=== PATIENT | female | born 1965 | race Caucasian/White ===

== ENCOUNTER 2018-12-21 18:51 | Outpatient (REF) | payer OTHER, SELFPAY | END 2018-12-21 19:11 | LOC: LBN 18:51 | PROVIDERS: PCP Family Medicine; Visit Provider Nurse Practitioner Family | DX: R35.0 Frequency of micturition (principal) | CPT/HCPCS: 87077; 87086; 87186 ==

== ENCOUNTER 2019-01-03 00:36 | Outpatient (CLI) | payer OTHER, SELFPAY ==
--- NOTE | 2019-01-03 07:30 | DI.MAMMO_ITS ---
SYMPTOMS/DIAGNOSIS: SCREENING, Z12.31 MAMMOGRAM: Mammograms were interpreted according to the usual protocol including computer analysis with CAD system, tomosynthesis and C view imaging. Comparison with prior examinations. Breast density C. No suspicious masses or microcalcifications are seen. There is no definite evidence of malignancy. IMPRESSION: Negative mammogram. Routine screening is recommended. Category I. MQSA ASSESSMENT OF FINDINGS: Negative. Category 1. Patient will receive a letter notifying them of these results. Bi-RADS category C. The breasts are heterogeneously dense, which may obscure small masses.
== END 2019-01-03 00:56 ==
PROVIDERS: PCP Family Medicine; Visit Provider Nurse Practitioner Family
DX: Z12.31 Encounter for screening mammogram for malignant neoplasm of breast (principal)
CPT/HCPCS: 77063; 77067

== ENCOUNTER 2019-12-27 15:57 | Outpatient (REF) | payer OTHER, SELFPAY ==
--- NOTE | 2019-12-27 15:30 | PAPFT_PTH ---
PATIENT: Rochelle Guido LOC: [facility] U#:[id number] AGE/SX: 54/F ROOM: RE12/27/[address]: LETHA Ramirez : 1965 BED: DIS: 12/27/2019 SPEC #: [id number] RECD: 12/27/19 16:53 STATUS: NIKOLAS REEfrem #: [id number] CECILIA: 12/27/19 15:[address]: Elissa Harrington DEPT: [facility] Cytology RECD BY: Em Rodriguez ENTERED: 12/27/19 16:54 SP TYPE: PAPFT OTHR DR: Francine Ennis V Tissues: 1 - CX/ENDOCX FOR PAP SMEARS Procedures: PAP THIN PREP/UVM Screening HPV DNA PROBE Comments: [id number]
== END 2019-12-27 16:17 ==
LOC: LBN 15:57
PROVIDERS: PCP Family Medicine; Visit Provider Nurse Practitioner Family
DX: Z12.4 Encounter for screening for malignant neoplasm of cervix (principal); Z11.51 Encounter for screening for human papillomavirus (HPV)
CPT/HCPCS: 88142; 87624

== ENCOUNTER 2020-06-10 08:29 | Outpatient (CLI) | payer OTHER, SELFPAY ==
[2020-06-11 14:53] LABS: COVID-19 RT-PCR Result NEGATIVE (Negative)
== END 2020-06-10 08:49 ==
PROVIDERS: PCP Family Medicine; Visit Provider Podiatrist
DX: Z11.59 Encounter for screening for other viral diseases (principal)
CPT/HCPCS: U0003

== ENCOUNTER 2020-06-13 06:19 | Day surgery (SDC) | payer OTHER, SELFPAY ==
[2020-06-13 06:24] VITALS: BP 143/95; PULSE 74; RESP 16; TEMP 36.5; O2SAT 98
[2020-06-13] MEDS: Lactated Ringers 1,000 ML 80 ML IV (06:57)
--- NOTE | 2020-06-13 07:12 | HPE_ITS ---
Date of service: 06/13/20 Time of Service: 07:13 History of Present Illness History of Present Illness Chief Complaint: Right bunion deformity Narrative: 55-year-old female with slowly increasing pain associated with her right bunion deformity which is now interfering with comfortable shoe gear usage and work. Non-operative treatment to fail to provide significant relief of symptoms and she is looking for surgical repair. [facility] Medical History Migraine (Acute) Surgical History section a son at age 7 weeks with mitochondrial depletion A daughter at 6mo of age with mitochondrial depletion. Hx of colonoscopy (Chronic) [place] teeth extracted (Acute) Family History Father Heart disease Mother Hypertension Social History Smoking/Tobacco Use Status: Never Alcohol Intake: current Alcohol Intake frequency: a few times a week Alcohol type: beer Drug use: Never Substance use type: does not use Do you feel safe at home: Yes Do you feel safe in your relationship?: Yes History History 2 Para 2 Hx # Term Pregnancies Multiple births Hx # Pregnancies Ectopic pregnancies AB induced Hx Number of Living Children AB spontaneous Meds Home Medications and Allergies Home Medications Medication Instructions Recorded Confirmed Type Unknown [No Known Home Meds] 12/27/19 06/11/20 History Allergies Allergy/AdvReac Type Severity Reaction Status Date / Time kiwi Allergy Swelling/Ed Verified 06/13/20 06:24 sera No Known Drug Allergies Allergy Verified 06/13/20 06:24 Exam Narrative Exam Narrative: Rochelle is a 55-year-old female who presents in no acute distress. Head is normocephalic Eyes PERRLA Hearing is adequate Uvular is midline, airway looks assessable Heart has regular rate and rhythm without gallops rubs murmurs Lung messina were clear Abdomen was soft and nontender. Peripheral pulses are manually palpable at the ankles 2/4 CFT under 3 seconds without edema. Skin is grossly intact. Muscle groups 5 out of 5 bilaterally Skeletal exam is generally benign with the exception of the right first MPJ where a mild to moderate bunion deformity is observed. Tenderness is noted particularly along the medial and medial plantar aspect of the joint. No crepitance was noted. The sesamoid complex was currently asymptomatic although the medial sesamoid appears to be running over the dante. Neurologically she is grossly intact toes were downgoing there were no focal deficits Impressions: Symptomatic right bunion deformity Plan: Rochelle is being brought to the OR for surgical repair of the right bunion deformity. She understands risk and complications of surgery pertaining to pain, scarring, stiffness of the joint, over or under correction of deformity with persistent discomfort potentially requiring revisional procedure. All questions have been answered in detail. Informed consent has been obtained. Results Last Vital Signs Temp 36.5 C 06/13/20 06:24 Pulse 74 06/13/20 06:24 Resp 16 06/13/20 06:24 BP 143/95 H 06/13/20 06:24 Pulse Ox 98 06/13/20 06:24 COVID-19 Screening Have you,or household,traveled outside [place] in last 14 days?: No Had IN PERSON contact w/suspected or confirmed C-19 person: No
[2020-06-13] MEDS: ceFAZolin 1 GM/50 ML BAG IVPB (07:33)
[2020-06-13] MEDS: Bupivacaine 0.5% Pres-Free 30 ML VIAL (08:05)
[2020-06-13] MEDS: Lidocaine 1% Multi-Dose 50 ML VIAL (08:10)
[2020-06-13] MEDS: Dexamethasone 4 MG/ML VIAL (08:20)
--- NOTE | 2020-06-13 08:38 | W.PM.DSUDISC ---
Discharge Plan Disposition Patient Disposition: HOME Condition: Good Discharge Details Attending Provider: Celestine Almodovar Primary Care Provider: Francine Ennis V Home Meds and New Rx's Prescriptions: New ibuprofen 600 mg tablet 600 mg PO Q6H PRN (Reason: pain) Qty: 40 RF: 1 hydrocodone-acetaminophen [[place]] 5-325 mg tablet 1 tab PO Q6H PRN (Reason: pain) Qty: 7 RF: 0 Discharge Instructions Activity:: Elevate Remove Dressings/Wound Care:: Do Not Remove Shower/Bathe:: Cover Diet:: Normal Diet DS: Diagnosis Discharge Diagnosis (1) Hallux valgus (acquired), right foot: Status: Acute
--- NOTE | 2020-06-13 08:44 | ROE_ITS ---
Date of service: 06/13/20 Time of Service: 08:44 Operative Note Operative Note DATE OF PROCEDURE: 06/13/20 PRE-OP DIAGNOSIS: Hallux Valgus, right foot POST-OP DIAGNOSIS: same PROCEDURE: Modified Sandoval bunionectomy right foot ANESTHESIA: GETA ESTIMATED BLOOD LOSS: 1 PATHOLOGY: none sent TOURNIQUET TIME: 43 COMPLICATIONS: None Patient was transported to: same day Patient's condition: stable Implants: none Indications: 55-year-old female with pain along the medial and medial plantar aspect of the right first MPJ slowly worsening interfering with shoe gear and ambulation and daily activities. Procedure Description: Rochelle is brought to the operative suite placed in the supine position with the right foot was prepped and draped in the usual sterile podiatric fashion. Timeout was performed per protocol. Anesthesia was obtained through general non-airway anesthesia with local block of the right first ray consisting of 10 cc 50: 50 mixture 1% lidocaine plain, 0.5% Marcaine plain. Attention was directed to the right foot which was exsanguinated well-padded ankle tourniquet inflated 250 mmHg. A 5 cm dorsal medial incision was made parallel to the EHL tendon over the first MPJ. The incision was deepened in controlled depth fashion hemostasis being acquired with electrocautery. A lateral dissection of the joint was performed consisting of a lateral capsulotomy and an adductor tendon release. Attention was now directed to the medial aspect of the joint where an inverted L capsulotomy was performed. The medial and medial dorsal aspect of the joint showed moderate degenerative change with hypertrophy of bone. Consistent with osteoarthritic changes. With power instrumentation the medial and medial dorsal hyperostosis were resected. All rough and bony edges were rasped smooth. Copious irrigation was performed. She had good range of motion and good correction of her deformity. The medial joint capsule was repaired with a medial capsulorrhaphy and closure with 3-0 Vicryl simple interrupted suture. Subcutaneous layer was repaired with simple in terrupted suture 3-0 Vicryl subcuticular layer was repaired with simple interrupted suture of 4-0 Vicryl and the skin was brought together with continuous running 4-0 Monocryl suture. 4 mg dexamethasone phosphate was infused into the wound. The skin was then covered with Mastisol half-inch Steri-Strips Xeroform fluff Kerlix rolls Hema wrap. She is to remain in the postoperative shoe which was dispensed for all weightbearing activities she is to maintain the dressings clean and dry. The tourniquet was released at 43 minutes with vascularity returning immediately to all toes sharp and sponge counts were correct. She will be followed by myself in the office next week.
[2020-06-13 09:37] VITALS: BP 138/91; PULSE 59; RESP 16; TEMP 36.8; O2SAT 98
== END 2020-06-13 10:20 | disposition home or self-care (01) ==
PROVIDERS: PCP Family Medicine; Visit Provider Podiatrist
PROC: (CPT 28292; principal; 2020-06-13 07:30)
DX: M20.11 Hallux valgus (acquired), right foot (principal)
CPT/HCPCS: 28292; 99218; J0690; J1100

== ENCOUNTER 2021-04-02 08:54 | Outpatient (CLI) | payer OTHER, SELFPAY ==
[2021-04-02 09:16] LABS: Calculated LDL 143 mg/dL (<100); Cholesterol 229 mg/dL (<200); Glucose 98 mg/dL (74-106); HDL Cholesterol 65 mg/dL (40-60); Triglyceride 108 mg/dL (<150)
== END 2021-04-02 08:55 | disposition home or self-care (01) ==
LOC: LBO 08:57
PROVIDERS: PCP Family Medicine; Visit Provider Nurse Practitioner Family
DX: Z13.1 Encounter for screening for diabetes mellitus (principal); Z13.220 Encounter for screening for lipoid disorders
CPT/HCPCS: 36415; 80061; 82947

== ENCOUNTER 2021-04-02 14:52 | Outpatient (CLI) | payer OTHER, SELFPAY ==
--- NOTE | 2021-04-02 11:52 | DI.MAMMO_ITS ---
Exam(s) MAMMO SCREENING EXAM: MAMMO SCREENING CLINICAL HISTORY: screening TECHNIQUE: Bilateral full field digital CC and MLO mammographic images were obtained with 3D tomosyn thesis and utilizing computer aided detection (CAD). COMPARISON: Available for comparison. FINDINGS: Masses/Architectural Distortion: None seen. Microcalcifications: No suspicious pleomorphic-type are seen. Skin Thickening/Nipple Retraction: None. IMPRESSION: 1. No significant interval change with no specific features of malignancy noted. 2. Unless there is more urgent need, screening mammography is recommended, as per [employer] guidelines. BI-RADS Category 1 - Negative Breast Density - Category C - Heterogeneously dense Breast density category C or D implies that the patient has dense breast tissue. Dense breast tissue is very common and is not abnormal but dense breast tissue can make it harder to find cancer on a ma mmogram. Also, dense breast tissue may increase their breast cancer risk. This information about the result of the mammogram report was provided to the patient to raise their awareness. Use this report when you speak with the patient about their risks for breast cancer, which includes their family hist ory. At that time, you may recommend for more screening tests (Ultrasound or MRI) as they might be us eful based on their risk. A negative radiographic report should not delay biopsy if a dominant or clinically suspicious mass is present. Up to ten percent of cancers are not identified on mammography. A negative report may reinforce clinical impression. Adenosis and dense breasts may obscure an underlying neoplasm. False positive reports average 6 to 10%. Patient will receive a letter notifying them of these results.
== END 2021-04-02 15:12 ==
PROVIDERS: PCP Family Medicine; Visit Provider Nurse Practitioner Family
DX: Z12.31 Encounter for screening mammogram for malignant neoplasm of breast (principal)
CPT/HCPCS: 77063; 77067

== ENCOUNTER 2021-07-20 03:10 | Outpatient (REF) | payer OTHER, SELFPAY ==
[2021-07-20 19:54] LABS: COVID-19 RT-PCR UVMMC Result Negative (Negative)
== END 2021-07-20 03:11 | disposition home or self-care (01) ==
LOC: LBO 03:10
PROVIDERS: PCP Family Medicine; Visit Provider Nurse Practitioner Family
DX: Z20.822 Contact with and (suspected) exposure to COVID-19 (principal)
CPT/HCPCS: U0003

== ENCOUNTER 2021-09-07 09:23 | Outpatient (CLI) | payer OTHER, SELFPAY ==
[2021-09-08 10:05] LABS: Source Nasal/Nares
[2021-09-08 13:22] LABS: COVID-19 PCR Negative (Negative)
== END 2021-09-07 09:24 | disposition home or self-care (01) ==
LOC: LBO 09:25
PROVIDERS: PCP Family Medicine; Visit Provider Family Medicine
DX: Z20.822 Contact with and (suspected) exposure to COVID-19 (principal)
CPT/HCPCS: 87635

== ENCOUNTER 2021-11-13 13:54 | Outpatient (REF) | payer OTHER, SELFPAY ==
[2021-11-13 14:07] LABS: Bilirubin Negative (Negative); Blood Trace-lysed (Negative); Clarity Clear (Clear); Glucose Negative (Negative); Ketones Negative (Negative); Leukocyte Esterase Negative (Negative); Nitrite Negative (Negative); Specific Gravity 1.015 (1.005-1.025); Urobilinogen 0.2 EU/dL (Up TO 0.2); pH 5.5 (5-8)
[2021-11-13 14:19] LABS: WBC 0-2 HPF (0-5)
[2021-11-13 14:20] LABS: Bacteria Rare HPF (Negative); C & S Indicated? C&S Done As Ordered; Casts Negative LPF (Negative); Crystals Negative HPF (Negative); Epithelial Cells Few HPF (Negative); Mucus Negative (Negative)
== END 2021-11-13 13:55 | disposition home or self-care (01) ==
LOC: LBN 13:54
PROVIDERS: PCP Family Medicine; Visit Provider Urology
DX: R30.0 Dysuria (principal)
CPT/HCPCS: 81003; 81015; 87086

== ENCOUNTER 2023-08-10 15:55 | Outpatient (REF) | payer OTHER, SELFPAY ==
--- NOTE | 2023-08-10 15:00 | PAPFT_PTH ---
PATIENT: Rochelle Guido LOC: [facility] U#:[id number] AGE/SX: 58/F ROOM: RE08/10/[address]: Toña Miller NP : 1965 BED: DIS: 08/10/2023 SPEC #: [id number] RECD: 08/10/23 18:14 STATUS: NIKOLAS REQ #: [id number] CECILIA: 08/10/23 15:[address]: Toña Miller NP DEPT: [facility] Cytology RECD BY: Em Rodriguez ENTERED: 08/10/23 18:14 SP TYPE: PAPFT OTHR DR: Francine Ennis V Tissues: 1 - CX/ENDOCX FOR PAP SMEARS Procedures: PAP THIN PREP/UVM Screening HPV DNA PROBE Comments: [id number]
== END 2023-08-10 15:56 | disposition home or self-care (01) ==
LOC: LBN 15:55
PROVIDERS: PCP Family Medicine; Visit Provider Nurse Practitioner Women's Health
DX: Z12.4 Encounter for screening for malignant neoplasm of cervix (principal); Z11.51 Encounter for screening for human papillomavirus (HPV)
CPT/HCPCS: 88142; 87624

== ENCOUNTER → 2023-08-29 02:27 | Outpatient (CLI) | payer OTHER, SELFPAY ==
--- NOTE | 2023-08-29 15:00 | DI.MAMMO_ITS ---
Exam(s) MAMMO SCREENING EXAM: MAMMO SCREENING CLINICAL HISTORY: screening TECHNIQUE: Mammograms were interpreted according to the usual protocol including computer analysis w [employer] CAD system, tomosynthesis and C-view imaging. COMPARISON: 2012 through 2020 FINDINGS: The breasts are composed of scattered fibroglandular densities, Breast Density category B. No suspicious masses or suspicious microcalcifications are seen. No skin thickening or abnormal axillary lymph nodes are seen. There has been no significant change from prior exams. IMPRESSION: BI-RADS Category 1, Negative mammogram Yearly screening mammography is recommended. Breast Density - Category B, scattered fibroglandular densities. A negative radiographic report should not delay biopsy if a dominant or clinically suspicious mass is present. Up to ten percent of cancers are not identified on mammography. A negative report may reinforce clinical impression. Adenosis and dense breasts may obscure an underlying neoplasm. False positive reports average 6 to 10%. Patient will receive a letter notifying them of these results.
== END ==
PROVIDERS: PCP Physician Assistant Medical; Visit Provider Nurse Practitioner Women's Health
DX: Z12.39 Encounter for other screening for malignant neoplasm of breast (principal)
CPT/HCPCS: 77063; 77067

== ENCOUNTER 2023-11-24 13:33 | Outpatient (CLI) | payer OTHER, SELFPAY ==
--- NOTE | 2023-11-24 10:45 | DI.RAD_ITS ---
Exam(s) XR KNEE LT 4V AP,LAT,GLEN,PAT EXAM: XR KNEE LT 4V AP,LAT,GLEN,PAT CLINICAL HISTORY: LEFT KNEE PAIN. TECHNIQUE: 2D digital imaging was performed of the left knee. Four images were obtained. Merchant, AP, lateral and PA tunnel views were obtained. COMPARISON: No exams were available for comparison FINDINGS: BONES: No acute fracture is present. No bony destructive lesion is seen. There is an enthesophyte at the anterior patella. JOINTS: The knee is normally aligned. No joint effusion is seen. No loose body. SOFT TISSUE: Normal. IMPRESSION: No acute abnormality. DATA REPOSITORY: RADIATION DOSE DELIVERED:
== END 2023-11-24 13:34 | disposition home or self-care (01) ==
LOC: DIORS 13:34
PROVIDERS: PCP Physician Assistant Medical; Visit Provider Physician Assistant
DX: M25.562 Pain in left knee (principal)
CPT/HCPCS: 73564

== ENCOUNTER 2024-08-17 06:22 | Day surgery (SDC) | payer OTHER, SELFPAY ==
--- NOTE | 2024-08-16 19:05 | HPE_ITS ---
Assessment and Plan Assessment and plan (1) Encounter for screening colonoscopy: Status: Acute Assessment and plan: We reviewed the plan for a screening colonoscopy today as well as the risks and benefits of the procedure. I think Annika has a good understanding of what to expect. She is able to provide informed consent and we can proceed with colonoscopy as planned. History of Present Illness History of Present Illness Chief Complaint: screenig colonoscopy Narrative: Annika is a 59 year old who appears far younger than her stated age. She has been in her usual state of health. She underwent a colonoscopy as part of routine health maintenance 10 years ago which demonstrated some diverticulosis, but no evidence of any polyps. She denies any significant melena or hematochezia. She denies any known family history of colon or rectal cancers. PFSH All Active Problems Encounter for screening colonoscopy (Acute) Internal derangement of left knee (Acute) Depo-medrol injection: 05/25/24 Left knee DJD (Chronic) Mild Iliotibial band syndrome of left side (Acute) Pes anserinus bursitis of left knee (Acute) Hamstring tendinitis of left thigh (Acute) Hallux valgus (acquired), right foot (Acute) Migraine (Acute) Surgical History S/P foot surgery, right Hx of colonoscopy [place] teeth extracted section a son at age 7 weeks with mitochondrial depletion A daughter at 6mo of age with mitochondrial depletion. Family History Father Heart disease Mother Hypertension Social History Smoking/Tobacco Use Status: Never Smoking risk assessment performed?: Yes Alcohol Intake: current Alcohol Intake frequency: holidays/special occasions only Alcohol type: beer Drug use: Never Substance use type: does not use Housing: house Education Level: college current occupation: RN Sexually active: Yes Do you think of yourself as: straight/heterosexual Current gender identity: female What is your relationship status?: Panel score (0-1 are the most socially isolated patients): 1 What type of physical activity do you participate in: regular exercise Frequency: 3-4 times per week Seatbelt use: always Helmet use: Yes Drive intox or ride w/intox commercial collections driver: No Do you feel safe at home: Yes Do you feel safe in your relationship?: Yes Female Reproductive History Menstrual Menopause type: natural (2018) History History 2 Para 2 Hx # Term Pregnancies Multiple births Hx # Pregnancies Ectopic pregnancies AB induced Hx Number of Living Children 0 AB spontaneous Meds Allergies and Home Medications Allergies Allergy/AdvReac Type Severity Reaction Status Date / Time kiwi Allergy Anaphylaxis Unverified 08/17/24 06:32 Home Medications ?Medication ?Instructions ?Recorded ?Confirmed ?Type meloxicam 15 mg tablet 15 mg PO DAILY PRN 05/25/24 08/17/24 History Exam Const General: cooperative, healthy appearing and not in acute distress Neck Neck: normal visual inspection, no lymphadenopathy and supple Resp Effort & Inspection: normal respiratory effort Auscultation: clear to auscultation bilaterally Cardio Jugular venous pressure: no JVD Rate: regular rate Rhythm: regular rhythm Heart Sounds: S1 normal and S2 normal GI Inspection: normal to inspection Palpation: soft, no guarding, no hernias and nontender Percussion: normal to percussion Auscultation: normal bowel sounds Neuro General: patient alert, patient awake and patient oriented x3 Psych Appearance: grossly normal
--- NOTE | 2024-08-16 19:14 | PDOC.DSDIS_ITS ---
Date of service: 08/17/24 Time of Service: 08:06 Discharge Plan Disposition Patient Disposition: Home Condition: Good Discharge Details Reason For Visit: screening colonoscopy Attending Provider: Vickey Edwards Primary Care Provider: Spencer Hudson Home Meds and New Rx's Prescriptions: Continued meloxicam 15 mg tablet 15 mg PO DAILY PRN Rx Instructions: Take one tablet daily for inflammation and pain Discharge Instructions Instructions: Colon polyps, Diverticulosis Additional Instructions: Annika, I hope you were comfortable for the colonoscopy today. It was so nice to help take care of you. I did find removed 2 polyps today. To be very honest, I am skeptical that the first 1 is actually a polyp. I think is probably just a small fold of normal tissue. The other polyp, about 20 cm from the anus appears to be a more traditional adenomatous polyp. Nothing about it worries me in part icular, and it came off very easily. It will take about a week or 2 to get the results from the report, but as soon as I have those I will let you know. Certainly, there is nothing here to worry about. If you need anything at all, just give me a call at any point [phone] 1. If tolerated, consume a soft, low fiber diet for 1-2 days. 2[address] Do not drive, drink alcohol, operate machinery, make critical decisions, or do activities that require coordination or balance for 24 hours. 3. Because air was put into your colon during the procedure, expelling air from your rectum (passing gas or farting) is normal. 4. You may not have a bowel movement for 1-3 days because of the colonoscopy prep. This is normal. 5. Go directly to the emergency room if you notice any of the following: Develop chills (warm to touch), or if you have a thermometer and your temperature is above 101 Difficulty breathing or difficultly swallowing Persistent vomiting Severe abdominal pain, other than gas cramps Severe chest pain Black, tarry stools Any bleeding ? exceeding one tablespoon 6. Call your physician if the site where your intravenous was started becomes red, swollen, painful, and warm to touch. 7. Your physician has reviewed your pre-procedure medications. Please continue to take those medications as previously ordered. You will be given specific information/education regarding any changes to your medications before leaving. Activity:: Activity as Tolerated Diet:: As Tolerated Discharge Orders Discharge Orders: Discharge Order (Routine); Ordered 08/16/24 Ordered By: Vickey Edwards DS: Diagnosis Discharge Diagnosis (1) Encounter for screening colonoscopy: Status: Acute Asessment and Plan: Follow-up on polypectomy results
--- NOTE | 2024-08-16 19:15 | W.COLOREPORT ---
Date of service: 08/17/24 Time of Service: 08:08 Colonoscopy Report Date of procedure: 08/17/24 Pre-op diagnosis general: screening colonoscopy Post-op diagnosis procedure note: other (Diverticulosis, colon polyps) Procedure: colonoscopy with polypectomy Surgeon: Vickey Edwards Anesthesia Type: General:No Airway Estimated blood loss (mL): 5 Pathology: other (0.25 cm polyp at 100 cm, 0.5 cm polyp at 20 cm) Complications: None Disposition: same day Indications: Annika is a 59 year old woman who needs her next screening colonsocopy Prep: Miralax/Dulcolax Procedure Start Time: 07:37 Procedure End Time: 07:55 Retraction Time: 11 Findings: Sigmoid diverticulosis, 0.25 cm polyp at 100 cm, 0.5 cm polyp at 20 cm Procedure Description: After the induction of anesthesia and with the patient in left lateral decubitus position, I began by performing an external anorectal exam.? Perineum and skin were normal, as was the anal verge.? Next, I performed a digital rectal exam.? I did not appreciate any abnormal findings.? Next, I advanced a colonoscope into the rectal vault.? I performed retroflexion.? This appeared normal.? Using insufflation, I then advanced the colonoscope beyond the rectal folds and into the sigmoid colon before advancing towards the cecum.? There is some sigmoid diverticulosis extending to about 35 cm beyond the anus.? The scope was noted to be in the cecum by identification of the ileocecal valve and appendiceal orifice.? I then began withdrawing the colonoscope using repeated irrigation as necessary for full evaluation of the colonic mucosa. ?Around 100 cm from the anal verge was a 0.25 cm flat polyp. Started to tell if there is actually a true polyp, rather just a fold within the colonic strip. Regardless, I removed this with cold forceps without any difficulty. There was minimal bleeding. At 20 cm from the anus was a more traditional polyp, mostly pedunculated. This was removed with snare polypectomy. There was minimal bleeding from the site as well. Once the scope was withdrawn to the level of the rectum, great care was taken to examine portions of the rectal folds.? Finally, the scope was withdrawn and the patient was brought to the same-day surgery recovery unit as the anesthetic wore off. ?The findings and instructions were shared with the patient prior to discharge. [place] Bowel Prep [place] Bowel Prep Right Colon: 3 Left Colon: 3 Transverse Colon: 3 Total Score: 9
[2024-08-17 06:39] VITALS: BP 145/99; PULSE 78; RESP 18; TEMP 36.6; O2SAT 98
[2024-08-17] MEDS: Lactated Ringers 1,000 ML 80 ML IV (06:58)
--- NOTE | 2024-08-17 07:03 | W.ANESPRE ---
General Info Date of Service Date Performed: 08/17/24 Height: 5 ft 2 in Weight: 89.6 kg Body Mass Index (BMI): 36.1 Surgical Procedure: Operation Date: 08/17/24 07:35 Proposed Procedure Side Surgeon p Vandana Edwards MD Meds Allergies and Home Medications Allergies Allergy/AdvReac Type Severity Reaction Status Date / Time kiwi Allergy Anaphylaxis Unverified 08/17/24 06:32 Home Medication ?Medication ?Instructions ?Recorded meloxicam 15 mg tablet 15 mg PO DAILY PRN 05/25/24 Current Visit Medications: Current Medications Generic Name Dose Route Start Last Admin Trade Name Freq PRN Reason Stop Dose Admin Hyoscyamine Sulfate 0.125 mg 08/16/24 19:16 Hyoscyamine 0.125 Mg Sl/Oral/Chew SL 09/15/24 19:15 DIRECTED PRN Ringer's Solution 1,000 mls @ 80 mls/hr 08/17/24 06:00 08/17/24 06:58 IV 09/15/24 23:59 80 mls/hr INFUSION ROSAS Administration IV Miscellaneous Supplies 1 each 08/17/24 06:00 Iv Access IV 09/15/24 23:59 DIRECTED ROSAS Ondansetron HCl 4 mg 08/16/24 19:16 Ondansetron 4 Mg/2 Ml Vial IVP 09/15/24 19:15 Q4H PRN PRN Nausea / Vomiting Sodium Chloride 0 ml 08/17/24 06:00 Normal Saline Flush 10 Ml Syr IV 09/15/24 23:59 PRN PRN Sodium Chloride 0 ml 08/17/24 06:00 Normal Saline 10 Ml Vial IJ 09/15/24 23:59 DIRECTED PRN Sterile Water 0 ml 08/17/24 06:00 Water,Injection,Sterile 10 Ml Vial IJ 09/15/24 23:59 DIRECTED PRN PFSH Active Problems Active Problems: Problem Status Onset Code Encounter for screening colonoscopy Acute Z12.11 Internal derangement of left knee Acute 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 Tobacco Smoking/Tobacco Use Status: Never Passive smoking exposure: No Alcohol Alcohol Intake: current Alcohol intake frequency: holidays/special occasions only Alcohol type: beer Substance Use Substance use: Never Substance use type: does not use Prental History History 2 Para 2 Hx # Term Pregnancies Multiple births Hx # Pregnancies Ectopic pregnancies AB induced Hx Number of Living Children 0 AB spontaneous Vital Signs and Lab Results Vital Signs Most Recent Vital Signs in EMR: Most Recent Vital Signs Temp Pulse Resp BP Pulse Ox 36.6 C 78 18 145/99 H 98 08/17/24 06:39 08/17/24 06:39 08/17/24 06:39 08/17/24 06:39 08/17/24 06:39 Lab Results Blood Type / Crossmatch: No Data to Display Complete Blood Count: No Data to Display Complete Metabolic Panel: No Data to Display Liver Function Panel: No Data to Display Coagulation Panel: No Data to Display Cardiac Panel: No Data to Display Arterial Blood Gas: No Data to Display Venous Blood Gas: No Data to Display Pancreas Panel: No Data to Display Thyroid Panel: No Data to Display Infectious Disease: No Data to Display Blood Cultures: No Data to Display Toxicology Panel: No Data to Display Anesthesia Assessment and Plan Anesthesia History Personal History: No History of Anesthesia Complications Family History: No Family History of Anesthesia Complications Exercise Tolerance Exercise Tolerance: Metabolic Equivalents>4 Pertinent Negatives Pertinent Negatives: No Symptoms of GERD, No Major Cardiovascular Symptoms or Complaints and No Major Pulmonary Symptoms or Complaints Cardiac & Pulmonary Exam Cardiac Exam: Normal S1/S2 Heart Sounds Pulmonary Exam: Clear Bilateral Breath Sounds Implantable Cardiac Device Does patient have a Pacemaker or an ICD?: No Airway Exam Known Difficult Airway: No Mallampati Class: 1 Mouth Opening: Normal (> 3cm) Thyromental Distance: Greater than 3 cm Neck Range of Motion: Full ROM Neck Circumference: Normal Teeth Condition: Normal Dentition ASA Classification ASA Score: ASA 2 Emergency Case?: No NPO Status NPO Status: NPO Clears >2 hours, Solids >8 hours Anesthesia Plan Resuscitation Status: Full Code Anesthesia Technique: General Anesthesia Airway Planned: Natural Airway Monitors Used: Standard Monitors
[2024-08-17 07:19] VITALS: BMI 36.1
--- NOTE | 2024-08-17 07:46 | BOWEL_PTH ---
PATIENT: Rochelle Guido LOC: [facility] U#:[id number] AGE/SX: 59/F ROOM: RE08/17/[address]: Vickey Edwards MD : [id number] BED: DIS: 08/17/2024 SPEC #: [id number] RECD: 08/17/24 12:46 STATUS: NIKOLAS REQ #: [id number] CECILIA: 08/17/24 07:[address]: Vickey Edwards DEPT: Surgical Specimen RECD BY: Em Rodriguez ENTERED: 08/17/24 12:48 SP TYPE: Bowel OTHR DR: Spencer Hudson Tissues: 1 - BIOPSY BOWEL 2 - BIOPSY BOWEL Procedures: GROSS AND MICRO LEVEL 4 Comments: [id number]
[2024-08-17 08:10] VITALS: BP 130/78; PULSE 79; RESP 16; TEMP 36.6; O2SAT 94
[2024-08-17 08:30] VITALS: BP 130/78; PULSE 78; RESP 18; TEMP 36.6; O2SAT 95
--- NOTE | 2024-08-17 08:36 | W.ANESPOSTOP ---
Postoperative Evaluation Date, Time and Location Date Performed: 08/17/24 Time Performed: 08:28 Patient Location: Day Surgery Unit Vital Signs Most Recent Imported Vital Signs: Most Recent Vital Signs Temp Pulse Resp BP Pulse Ox 36.6 C 78 18 130/78 95 08/17/24 08:30 08/17/24 08:30 08/17/24 08:30 08/17/24 08:30 08/17/24 08:30 Pain Score Most Recent Pain Score: Most Recent Pain Score Pain Level 0 08/17/24 08:30 Assessment Mental Status: Awake (Alert & Oriented to Patient Baseline) Airway and Respiratory Function: Patent airway with normal (patient baseline) respiratory exam Cardiovascular Function: Hemodynamically Stable Hydration Status: Adequately Hydrated Nausea & Vomiting: No Nausea or Vomiting Pain: Pt. Denies Any Pain Peripheral Nerve Block: Patient did not receive a nerve block
== END 2024-08-17 08:52 | disposition home or self-care (01) ==
LOC: SUR 06:22
PROVIDERS: PCP Physician Assistant Medical; Visit Provider Surgery
PROC: 0DJD8ZZ Inspection of Lower Intestinal Tract, Via Natural or Artificial Opening Endoscopic (ICD-10-PCS; CPT 45378; principal; 2024-08-17 07:30)
DX: Z12.11 Encounter for screening for malignant neoplasm of colon (principal); K57.30 Diverticulosis of large intestine without perforation or abscess without bleeding; D12.3 Benign neoplasm of transverse colon
CPT/HCPCS: 45385; 45380; 88305; J2704

== ENCOUNTER 2024-08-27 16:48 | Outpatient (REF) | payer OTHER, SELFPAY ==
[2024-08-27 15:57] LABS: Bilirubin Negative (Negative); Blood Large (Negative); Clarity Clear (Clear); Glucose Negative (Negative); Ketones Negative (Negative); Leukocyte Esterase Moderate (Negative); Nitrite Positive (Negative); Specific Gravity 1.015 (1.005-1.025); Urobilinogen 0.2 mg/dL (Up to 0.2)
[2024-08-27 16:29] LABS: Epithelial Cells Few HPF (Negative); Other Cells Rare Transitional (Negative); WBC 20-50 HPF (0-5)
[2024-08-27 16:30] LABS: Bacteria Moderate HPF (Negative); C & S Indicated? C&S Done As Ordered; Casts 0-2 Hyaline LPF (Negative); Crystals Negative HPF (Negative); Mucus Negative (Negative)
== END 2024-08-27 16:49 | disposition home or self-care (01) ==
LOC: LBN 16:48
PROVIDERS: PCP Physician Assistant Medical; Visit Provider Urology
DX: R30.0 Dysuria (principal); B96.29 Other Escherichia coli [E. coli] as the cause of diseases classified elsewhere; R82.89 Other abnormal findings on cytological and histological examination of urine
CPT/HCPCS: 87077; 81003; 81015; 87086; 87186

== ENCOUNTER 2025-06-03 12:19 | Outpatient (CLI) | payer OTHER, SELFPAY ==
[2025-06-03 16:28] LABS: Hemoglobin A1C 5.6 % (<5.7)
[2025-06-03 17:18] LABS: ALT 38 U/L (14-59); AST 24 U/L (15-37); Albumin 3.9 g/dL (3.4-5.0); Alkaline Phosphatase 76 U/L (46-116); Anion Gap 6.8 mmol/L (3-11); BUN 14 mg/dL (7-18); Bilirubin, Total 0.3 mg/dL (0.2-1.0); CO2 31.2 mmol/L (21.0-32.0); Calcium 9.2 mg/dL (8.5-10.1); Chloride 102 mmol/L (98-107); Estimated GFR 98.34 (mL/min/1.73m2); Glucose 84 mg/dL (74-106); Potassium 3.8 mmol/L (3.5-5.1); Sodium 140 mmol/L (136-145); Total Protein 7.8 g/dL (6.4-8.2)
[2025-06-04 10:25] LABS: Lyme Ab w Rflx to Lyme Confirm Negative (Negative)
== END 2025-06-03 12:20 | disposition home or self-care (01) ==
LOC: LBO 12:19
PROVIDERS: PCP Physician Assistant Medical; Visit Provider Physician Assistant Medical
DX: M25.561 Pain in right knee (principal); M25.562 Pain in left knee
CPT/HCPCS: 36415; 80053; 83036; 86618

== ENCOUNTER 2025-06-04 08:00 | Outpatient (CLI) | payer OTHER, SELFPAY ==
[2025-06-04 08:00] LABS: Calculated LDL 129 mg/dL (<100); Cholesterol 215 mg/dL (<200); HDL Cholesterol 55 mg/dL (>or=50); Triglyceride 156 mg/dL (<150)
== END 2025-06-04 08:01 | disposition home or self-care (01) ==
LOC: LBO 08:00
PROVIDERS: PCP Physician Assistant Medical; Visit Provider Physician Assistant Medical
DX: Z13.220 Encounter for screening for lipoid disorders (principal)
CPT/HCPCS: 36415; 80061

== ENCOUNTER → 2025-09-03 00:52 | Outpatient (CLI) | payer OTHER, SELFPAY ==
--- NOTE | 2025-09-03 | DI.MAMMO_ITS ---
Exam(s) MAMMO SCREENING EXAM: MAMMO SCREENING CLINICAL HISTORY: SCREENING, Z12.31. TECHNIQUE: Bilateral full field digital CC and MLO mammographic images were obtained with 3D tomosynthesis and utilizing computer aided detection (CAD). COMPARISON: Prior mammograms were reviewed. FINDINGS: There has been no significant change in the appearance and distribution of the fibroglandular tissue. No CAD designations. There are no new spiculated masses nor malignant appearing microcalcification groups. There is no significant architectural distortion nor skin thickening-retraction. IMPRESSION: No radiographic evidence of malignancy. BI-RADS Category 1 - Negative Breast Density - Category B - There are scattered areas of fibroglandular density. Breast density Category C or D implies that the patient has dense breast tissue. Dense breast tissue can make it harder to find cancer on a mammogram. Dense breast tissue is also associated with an increased risk of breast cancer. This information about the result of the mammogram report was provided to the patient to raise their awareness. Use this report when you speak with the patient about their risks for breast cancer, which includes their family history. At that time, you may recommend additional screening tests (Ultrasound or MRI) as these tests may add significant information. A negative radiographic report should not delay biopsy if a dominant or clinically suspicious mass is present. Up to ten percent of cancers are not identified on mammography. A negative report may reinforce clinical impression. Adenosis and dense breasts may obscure an underlying neoplasm. False positive reports average 6 to 10%. Patient will receive a letter notifying them of these results.
== END ==
PROVIDERS: PCP Physician Assistant Medical; Visit Provider Physician Assistant Medical
DX: Z12.31 Encounter for screening mammogram for malignant neoplasm of breast (principal); R92.323 Mammographic fibroglandular density, bilateral breasts
CPT/HCPCS: 77063; 77067